=== PATIENT | female | born 1990 | race African-American/Black ===

== ENCOUNTER 2017-04-30 20:54 | Emergency (ER) | payer SELFPAY ==
[2017-04-30] MEDS ORDERED: Ibuprofen 600 MG TAB ONE (23:13)
== END 2017-04-30 23:15 | disposition home or self-care (01) ==
LOC: MADERS 20:54
DX: J11.1 Influenza due to unidentified influenza virus with other respiratory manifestations (principal)
CPT/HCPCS: 99283